=== PATIENT | male | born 1950 | race Caucasian/White ===

== ENCOUNTER 2017-04-19 09:36 | Emergency (ER) | payer BC ==
--- NOTE | 2017-04-19 09:47 | Emergency Department Record ---
History of Present Illness - General Chief complaint: Male Urogenital Problem Stated complaint: GROIN PAIN Time Seen by Provider: 04/19/17 09:46 Source: Patient, Family Mode of Arrival: Ambulatory Limitations: No limitations - History of Present Illness Initial comments: 66 yo male presents with groin pain since Tuesday. He reports working out with a assistive technology trainer on . He was not sore on Tuesday. Starting Tuesday he has developed a pain across the lower part of the abdomen from hip to hip. It hurts to walk, move and lift legs. No fevers. He has a history of recently diagnosed prostate CA. One month ago he had cryoablasion of the prostate. He has recovered well but has had a sporadic urinary stream since then with incontinence. This is unchanged over the last month. The urinary incontinence occurs because he is too slow to get to the bathroom due to pain causing slow walking. However he has noted blood in the urine with some urethra drainage thick the last 2 days. No fevers, chills, nausea or vomiting. No diarrhea. No changes in his appetite or eating. No blood in the stools. He is on Eliquis. PCP is Karson. Urology is [facility]. No changes in chronic back pain. MD Complaint: Other (pain from hip to hip across groin, equal on both sides) -: Days(s) (2-3) Location: Abdomen Radiation: Suprapubic, LLQ, RLQ Severity: Moderate Quality: Aching Consistency: Constant Improves with: Rest Worsens with: Movement Recent surgery (one month ago) Reports: Blood in urine, Incontinence (chronic since surgery) - Related Data Home Medications Medication Instructions Recorded Confirmed Last Taken Apixaban [Eliquis] 5 mg PO BID 04/19/17 04/19/17 Unknown Dronedarone HCl [Multaq] 400 mg PO BID 04/19/17 04/19/17 Unknown Allergies Allergy/AdvReac Type Severity Reaction Status Date / Time No Known Drug Allergies Allergy Verified 07/24/15 14:02 Review of Systems Constitutional: Denies: Chills, Fever Eyes: Denies: Eye discharge, Eye pain, Vision change ENT: Denies: Congestion, Throat pain Respiratory: Denies: Cough Cardiovascular: Denies: Chest pain, Syncope Endocrine: Denies: Fatigue Gastrointestinal: Reports: As per HPI, Abdominal pain. Denies: Diarrhea, Nausea , Vomiting Genitourinary: Reports: As per HPI, Hematuria, Incontinence Musculoskeletal: Reports: As per HPI, Arthralgia, Back pain, Myalgia Skin: Denies: Bruising, Change in color, Rash Neurological: Denies: Confusion, Headache, Numbness, Vertigo, Weakness Psychiatric: Denies: Anxiety Hematological/Lymphatic: Denies: Blood Clots, Easy bleeding, Easy bruising, Swollen glands Past Medical History - SOCIAL HISTORY Smoking Status: Light tobacco smoker (<10/day) - RESPIRATORY Hx Respiratory Disorders: No - CARDIOVASCULAR Hx Cardio Disorders: Yes Hx Hypertension: Yes Hx Irregular Heartbeat: Yes Comment:: hypercholesteremia - NEURO Hx Neuro Disorders: No - GI Hx GI Disorders: No - Hx Genitourinary Disorders: No - ENDOCRINE Hx Endocrine Disorders: Yes Hx Diabetes: Yes - MUSCULOSKELETAL Hx Musculoskeletal Disorders: Yes Hx Arthritis: Yes - PSYCH Hx Psych Problems: No - HEMATOLOGY/ONCOLOGY Hx Hematology/Oncology Disorders: No Physical Exam - General General Appearance: Alert, Oriented x3, Cooperative, No acute distress Limitations: No limitations - Head Head exam: Normal inspection - Eye Eye exam: Normal appearance, Conjunctival injection. negative: Scleral icterus - ENT ENT exam: Normal exam Ear exam: Normal external inspection Nasal Exam: Normal inspection Mouth exam: Normal external inspection Teeth exam: Normal inspection - Neck Neck exam: Normal inspection - Respiratory Respiratory exam: Normal lung sounds bilaterally. negative: Respiratory distress - Cardiovascular Cardiovascular Exam: Regular rate, Normal rhythm, Normal heart sounds Peripheral Pulses: 2+: Radial (R), Radial (L) - GI/Abdominal GI/Abdominal exam: Soft, Tenderness, Other (morbidly obese). negative: Distended, Guarding - Rectal Rectal exam: Deferred - exam: Urethral discharge (clear with blood, patient has urinary incontinence) , Other (there is a purulent like bloody drainage from the urethra with some tenderness of manipulating the scrotum and penis, no significant swelling of the scrotum). negative: Scrotal swelling, Testicular tenderness - Extremities Extremities exam: Normal inspection, Full ROM, Normal capillary refill. negative: Tenderness Image of Full Body: 1 - tender in the soft tissues across the hips, groin, suprapubic area, no erythema, no rash, no mass or obvious swelling, pain with active hip extension bilaterally - Back Back exam: Reports: Normal inspection, Full ROM. Denies: Muscle spasm, Rash noted, Tenderness - Neurological Neurological exam: Alert, Normal gait, Oriented X3 - Psychiatric Psychiatric exam: Normal affect, Normal mood - Skin Skin exam: Dry, Intact, Normal color, Warm Course - Reevaluation(s) Reevaluation #1: 04/19/17 09:47 vitals reviewed no acute process 04/19/17 10:49 The CBC and BMP were reviewed Hgb 11.4 Normal WBC count 04/19/17 11:17 No acute changes on the BMP The CT scan demonstrated air inferior to the bladder and anterior to the prostate of unknown origin. No other acute findings. No air in the bladder. 04/19/17 11:23 The patient's [facility] Urologist is Vasquez Betancourt 04/19/17 12:[address] Betancourt of Urology at [facility]. He stated some necrosis is expected but air in the soft tissues could be infection and recommends antibiotics. I will discuss with his local urologist as well. He recommends a rodgers ONLY if unable to void. 04/19/17 14:02 The case was discussed with Dr Carter The recommendation is for antibiotics and transfer Dr Guzman accepts the patient at [facility] for transfer Medical Decision Making - Lab Data Result diagrams: 04/19/17 10:10 04/19/17 10:10 Disposition Disposition: Discharge Clinical Impression: Groin pain Transfer To: [facility] Reason For Transfer: Prostate infection Accepting Physician: Thomas Time Discussed w/Accepting Physician: 14:02 Condition: (1) Good Forms: Patient Portal Access Time of Disposition: 14:02 Quality - Quality Measures Quality Measures: N/A - Blood Pressure Screening Does Patient Have Any of the Following: No Blood Pressure Classification: Hypertensive Reading Systolic Measurement: 140 Diastolic Measurement: 76 Screening for High Blood Pressure: < Pre-Hypertensive BP, F/U Documented > [ G8950] Pre-Hypertensive Follow-up Interventions: Referral to alternative/primary care provider.
[2017-04-19] MEDS ORDERED: SODIUM CHLORIDE 0.9% 500 ML IV ONE (09:50)
[2017-04-19] MEDS ORDERED: ONDANSETRON HCL IV 4 MG/2 ML VIAL IVP ONE (10:01)
[2017-04-19] MEDS ORDERED: MORPHINE SULFATE 5 MG/ML PFS IVP ONE ×2 (10:01→14:05)
[2017-04-19 10:24] LABS: BASO % 0.2 % (0-6); GRAN % 79.1 % (47-80); HEMATOCRIT 36.3 % (42.0-52.0); HEMOGLOBIN 11.4 gm/dl (14.0-18.0); MEAN CELL VOLUME 91.7 fl (81-97); MEAN CORPUSCULAR HGB CONC 31.4 g/dl (32-36); MEAN PLATELET VOLUME 8.5 fl (7.4-10.4); MONO % 9.7 % (0-9); PLATELET COUNT 373 K/uL (130-400); RED BLOOD COUNT 3.96 M/uL (4.40-5.70); RED CELL DISTRIBUTION WIDTH 14.4 % (11.5-14.5); WHITE BLOOD COUNT W/O DIFF 10.3 K/uL (4.2-12.2)
[2017-04-19 10:25] LABS: MEAN CORPUSCULAR HEMOGLOBIN 28.7 pg (27-33)
[2017-04-19 10:29] LABS: BLOOD UREA NITROGEN 18 mg/dL (8-23); CREATININE 0.9 mg/dL (0.7-1.2); EST GLOMERULAR FILTRATION RATE > 60 mL/min
[2017-04-19 10:32] LABS: GLUCOSE,RANDOM 174 mg/dL (74-109)
[2017-04-19 10:35] LABS: LIPASE 20 U/L (13-60)
[2017-04-19 11:55] LABS: URINE BILIRUBIN NEGATIVE (NEGATIVE); URINE BLOOD LARGE (NEGATIVE); URINE COLOR YELLOW; URINE KETONE NEGATIVE (NEGATIVE); URINE LEUKOCYTE ESTERASE LARGE (NEGATIVE); URINE NITRITE NEGATIVE (NEGATIVE); URINE UROBILINOGEN 0.2 E.U./dL (0.20 - 1.00)
[2017-04-19 12:08] LABS: URINE APPEARANCE CLOUDY; URINE RBC >50 (NONE SEEN)
[2017-04-19 12:09] LABS: URINE BACTERIA 2+; URINE EPITHELIAL CELLS 0 - 2 (FEW)
[2017-04-19] MEDS ORDERED: PIPERACILLIN SODIUM/TAZOBACTAM 4.5 GM in 0.9 % SODIUM CHLORIDE 100ML 100 ML IVPB ONE (12:10)
--- NOTE | 2017-04-19 14:34 | CT SCAN REPORT ---
EXAM: EMERGENCY CT OF THE ABDOMEN AND PELVIS WITHOUT CONTRAST HISTORY: BILATERAL GROIN PAIN AND DARK RED URINE FOR THREE DAYS. PROSTATE CANCER WITH CRYOTHERAPY. TECHNIQUE: Axial CT scan of the abdomen and pelvis was performed without oral or IV contrast. Comparison: None. FINDINGS: No intrarenal calculi identified on either side. No hydronephrosis or hydroureter is seen. No definite ureteral calculus seen on either side and no bladder calculus evident, however, there is a small amount of air in the soft tissues inferior to the bladder in the region of the anterior aspect of the prostate bed. This may be iatrogenic with the history of prostate cancer and clinical correlation as to any recent procedure that would introduce air in this region suggested. A small amount of air is also seen within the pubic symphysis, but this may just be degenerative in nature with some degenerative spurring noted at the pubic symphysis. No calcified gallstones are seen within the gallbladder. Evaluation of the bowel and viscera is very limited without oral or IV contrast. Given this limitation, no definite hepatic, splenic, adrenal, pancreatic, or renal mass identified on either side. There are probably small bilateral inguinal hernias containing adipose tissue, but no bowel. No appendicitis is evident. Very small periumbilical anterior abdominal wall hernia containing adipose tissue, but no bowel. No free intraperitoneal air or free intraperitoneal fluid evident. There is prominent facet joint arthropathy in the lumbar spine. Exuberant spurring along the anterior aspect of the right sacroiliac joint. Multilevel degenerative disk disease in the lumbar spine. There appear to be six lumbar type vertebra with prominent spurring at the L1-L2 and L5-L6 levels in particular, but also at multiple other levels of the thoracic and lumbar spine. There is central stenosis at the L3-L4, L4-L5 and L5-L6 levels in particular. If the air in the region of the prostate bed is not felt to be iatrogenic, the possibility of infection in the prostate bed cannot be excluded. The prostate does have slightly low attenuation at approximately 17 CT units, but this is somewhat hard to interpret without IV contrast. IMPRESSION: 1. NO DEFINITE URINARY TRACT CALCULI OR HYDRONEPHROSIS EVIDENT. 2. THERE IS SOME AIR IN THE SOFT TISSUES ALONG THE ANTERIOR ASPECT OF THE PROSTATE BED INFERIORLY, INFERIOR TO THE BLADDER . THIS MAY BE IATROGENIC AND CLINICAL CORRELATION IS SUGGESTED. THERE IS A HISTORY OF PROSTATE CANCER. IF THIS AIR IN THE REGION OF THE PROSTATE BED IS NOT FELT TO BE IATROGENIC, THE POSSIBILITY OF INFECTION IN THE PROSTATE BED IS RAISED AND A DEVELOPING ABSCESS COULD NOT BE EXCLUDED. 3. SMALL BILATERAL INGUINAL HERNIAS CONTAINING ADIPOSE TISSUE AND ALSO A SMALL ANTERIOR ABDOMINAL WALL PERIUMBILICAL HERNIA CONTAINING ADIPOSE TISSUE, BUT NO BOWEL. 4. SIX LUMBAR TYPE VERTEBRA WITH EXTENSIVE DEGENERATIVE CHANGES IN THE LUMBAR SPINE WITH MULTILEVEL LUMBAR SPINAL STENOSIS. JOB NUMBER: [id number] AND [id number] [facility]
== END 2017-04-19 16:30 | disposition short-term general hospital (02) ==
LOC: ER 09:36
DX: R10.30 Lower abdominal pain, unspecified (principal); R31.0 Gross hematuria; I10 Essential (primary) hypertension; F17.210 Nicotine dependence, cigarettes, uncomplicated; R32 Unspecified urinary incontinence; C61 Malignant neoplasm of prostate
CPT/HCPCS: 74176; 80048; 81001; 83690; 85025; 96374; 96375; 96376; 99285; J2405; J2543

== ENCOUNTER 2019-02-09 10:21 | Emergency (ER) | payer OTHER, MEDICARE ==
--- NOTE | 2019-02-09 10:28 | Emergency Department Record ---
History of Present Illness - General Chief Complaint: Ankle/Foot Injury Stated Complaint: LEFT ANKLE INJURY Time Seen by Provider: 02/09/19 10:22 Source: Patient Mode of Arrival: Ambulatory Limitations: No limitations - History of Present Illness Initial Comments: 68 yo male presents with left ankle and to a lesser degree left foot pain. He reports he was getting into his truck and he mis-stepped. [facility] awkwardly on his left ankle. He did not feel any pop. He has had pain in the left ankle since then. He has some bruising and swelling. He is on Eliquis. He denies any other pain or injuries. He did not hit his head. No other changes in his recent health. MD Complaint: Ankle injury, Foot injury -: Days(s) (1) Injury: Ankle: Left, Foot: Left Type of Injury: Eversion Place: Home Severity: Moderate Improves With: Immobilization Worsens With: Movement, Palpation, Weight bearing Context: Fall, Walking Other Symptoms: Other (None) Associated Symptoms: Able to partially bear weight - Related Data Home Medications Medication Instructions Recorded Confirmed Last Taken Insulin Degludec [Tresiba 30 unit SQ BID 02/09/19 02/09/19 02/09/19 Flextouch U-200] Previous Rx's Medication Instructions Recorded Hydrocodone/APAP 5/325Mg [Magnolia 1 each PO Q4H #12 tab 02/09/19 5Mg/325Mg] Allergies Allergy/AdvReac Type Severity Reaction Status Date / Time No Known Drug Allergies Allergy Verified 02/09/19 10:33 Review of Systems Constitutional: Denies: Chills, Fever, Malaise, Weakness Eyes: Denies: Eye discharge ENT: Denies: Congestion, Throat pain Respiratory: Denies: Cough, Dyspnea Cardiovascular: Denies: Chest pain, Palpitations, Syncope Endocrine: Denies: Fatigue Gastrointestinal: Denies: Abdominal pain, Diarrhea, Nausea, Vomiting Genitourinary: Denies: Dysuria, Frequency Musculoskeletal: Reports: As per HPI, Arthralgia Skin: Reports: As per HPI, Bruising Neurological: Denies: Headache, Numbness, Tingling, Tremors, Weakness Psychiatric: Denies: Anxiety Hematological/Lymphatic: Denies: Easy bleeding, Easy bruising Past Medical History - SOCIAL HISTORY Smoking Status: Light tobacco smoker (<10/day) - RESPIRATORY Hx Respiratory Disorders: No - CARDIOVASCULAR Hx Cardio Disorders: Yes Hx Hypertension: Yes Hx Irregular Heartbeat: Yes Comment:: hypercholesteremia - NEURO Hx Neuro Disorders: No - GI Hx GI Disorders: No - Hx Genitourinary Disorders: No Hx Prostate Problems: Yes - ENDOCRINE Hx Endocrine Disorders: Yes Hx Diabetes: Yes - MUSCULOSKELETAL Hx Musculoskeletal Disorders: Yes Hx Arthritis: Yes - PSYCH Hx Psych Problems: No - HEMATOLOGY/ONCOLOGY Hx Hematology/Oncology Disorders: No Hx Cancer: Yes Hx Chemotherapy: No Hx Radiation Therapy: No Physical Exam - General General Appearance: Alert, Oriented x3, Cooperative, No acute distress Limitations: No limitations - Head Head exam: Atraumatic, Normal inspection - Eye Eye exam: Normal appearance. negative: Conjunctival injection - ENT ENT exam: Normal exam Ear exam: Normal external inspection Nasal Exam: Normal inspection Mouth exam: Normal external inspection - Neck Neck exam: Normal inspection - Cardiovascular Peripheral Pulses: 2+: Dorsalis Pedis (L) - Rectal Rectal exam: Deferred - exam: Deferred - Extremities Extremities exam: Full ROM, Joint swelling, Tenderness. negative: Normal inspection, Calf tenderness Image of Full Body: 1 - mild symmetric swelling, tender lateral greater than medial, achilles is intact, mild proximal foot tenderness, no proximal fibular tenderness - Back Back exam: Denies: CVA tenderness (R), CVA tenderness (L) - Neurological Neurological exam: Alert, Oriented X3 - Psychiatric Psychiatric exam: negative: Agitated, Anxious - Skin Skin exam: Other (Bruising) Course - Reevaluation(s) Reevaluation #1: 02/09/19 11:09 The XR was reviewed Fractures of the lateral and medial malleoli A copy of the XR was provided to the patient 02/09/19 11:22 02/09/19 11:47 The patient has PHP Exclusive so [facility] was contacted for orthopedic referral 02/09/19 12:37 Dr Wagoner of orthopedics called back. After review of the injury the plan is for OR on Tuesday. The patient was informed and will hold his Eliquis at this point forward. He will go to admitting on Tuesday morning for surgery. Disposition Disposition: Discharge Clinical Impression: Ankle fracture, bimalleolar, closed Qualifiers: Encounter type: initial encounter Laterality: left Qualified Code(s): S82.842A - Displaced bimalleolar fracture of left lower leg, initial encounter for closed fracture Disposition: Home, Self-Care Condition: (1) Good Instructions: Ankle Fracture (ED) Additional Instructions: Ice the area 3 times daily Elevate the foot/ankle to minimize swelling over the week Try to put no weight on the injury Stop your Eliquis You will go to [facility] at the time provided for surgery on Tuesday with Dr Wagoner Prescriptions: Hydrocodone/APAP 5/325Mg [Magnolia 5Mg/325Mg] 1 each PO Q4H #12 tab Referrals: LATONYA WAGONER [[email or web address]] - Forms: Patient Portal Access Time of Disposition: 12:40 Quality - Quality Measures Quality Measures: N/A - Blood Pressure Screening Does Patient Have Any of the Following: Active Dx of HTN Blood Pressure Classification: Pre-Hypertensive BP Reading Systolic Measurement: 154 Diastolic Measurement: 86 Screening for High Blood Pressure: Patient Exclusion, Hx of HTN [G9744]
--- NOTE | 2019-02-09 11:33 | RADIOLOGY REPORT ---
EXAMINATION: Left Ankle, Complete Minimum Three Views EXAM DATE: 02/09/2019 11:01 AM TECHNIQUE: AP, lateral, and oblique INDICATION: ankle injury COMPARISON: None ENCOUNTER: Initial FINDINGS: Diffuse soft tissue swelling. Avulsion fracture medial malleolus. Spiral fracture distal fibula. Dors al and plantar calcaneal spurring. IMPRESSION: 1. Avulsion fracture medial malleolus, spiral fracture distal fibula 2. Diffuse soft tissue swelling 3. Calcaneal spurring Dictated by: Andres Zapata MD on 02/09/2019 11:30 AM. .
--- NOTE | 2019-02-09 11:38 | RADIOLOGY REPORT ---
EXAMINATION: Left Foot, Minimum Three Views EXAM DATE: 02/09/2019 11:01 AM TECHNIQUE: AP, lateral, and oblique INDICATION: ankle injury COMPARISON: None ENCOUNTER: Initial FINDINGS: Normal bony architecture. Undisplaced fracture base of the third metatarsal. Undisplaced fracture bas e of the proximal phalanx fifth toe. Fracture the medial and lateral malleoli. Dorsal and plantar maria luisa caneal spurring. IMPRESSION: 1. Undisplaced fracture base of the third metatarsal 2. Undisplaced fracture base of the proximal phalanx fifth toe 3. Medial and lateral malleoli fractures Dictated by: Andres Zapata MD on 02/09/2019 11:32 AM. .
== END 2019-02-09 13:50 | disposition home or self-care (01) ==
LOC: ER 10:21
DX: S82.52XA Displaced fracture of medial malleolus of left tibia, initial encounter for closed fracture (principal); S82.442A Displaced spiral fracture of shaft of left fibula, initial encounter for closed fracture; S92.332A Displaced fracture of third metatarsal bone, left foot, initial encounter for closed fracture; S92.512A Displaced fracture of proximal phalanx of left lesser toe(s), initial encounter for closed fracture; W17.89XA Other fall from one level to another, initial encounter; Y92.512 Supermarket, store or market as the place of occurrence of the external cause; E11.9 Type 2 diabetes mellitus without complications; I10 Essential (primary) hypertension; F17.210 Nicotine dependence, cigarettes, uncomplicated
CPT/HCPCS: 99284